=== PATIENT | male | born 1965 | race Caucasian/White ===

== ENCOUNTER → 2017-01-13 13:00 | Outpatient (CLI) | payer MEDICARE, BC ==
[2013-07-30 15:23] VITALS: BMI 35.7
[~2017-01-13 13:00] MED LIST: ASPIRIN EC81 MG PO; CALCIUM 600+D T1 TA1 PO; CARAFATE1 G PO; CENTRUM COMPLE1 EACH PO; DEXILANT60 MG PO; DIOVAN320 MG PO; FISH OIL 1,0001 CA1 PO; NORVASC5 MG PO; PRAVACHOL20 MG PO; PROLASTIN-C; SPIRIVA18 MCG; SYMBICORT 16010.2 GM INH; VENTOLIN HFA18 GM INH; VITAMIN A10000 UNIT; VITAMIN E400 UNI2 PO
== END | disposition home or self-care (01) ==
LOC: D.US 13:00
DX: E03.9 Hypothyroidism, unspecified (principal)

== ENCOUNTER 2018-08-27 07:50 | Outpatient (CLI) | payer MEDICARE, BC ==
--- NOTE | ~2018-08-27 | HEMODYNAMI ---
PATIENT:SERGIO BRADY MEDICAL RECORD: [id number] : 63 LOCATION:D.CAT ADMISSION DATE: 08/27/18 Generatedon:08/27/201811:31 Patient name: SERGIO BRADY Patient #: [id number] SSN: DO B: 1965 Date of study: 08/27/2018 Page: Of Hemodynamic Procedure Report Patient Data Patient Demographics Procedure consent was obtained First Name: SERGIO Gender: Male Last Name: CAITLYN : 1965 Middle Initial: D Age: 53 year(s) Patient #: [id number] Race: Unknown Additional ID: [id number] Contact details Address: [place] [address] [place] [place] [facility] Zip code: [address] Past Medical History Allergies Allergen Reaction Date Comments Reported Other allergy 08/27/2018 PCN, MORPHINE Admission Admission Data Admission Date: 08/27/2018 Admission Time: 7:50 Admit Source: Other Lab Results Lab Result Date: 08/27/2018 Lab Result Time: 9:05 Biochemistry Name Units Result Min Max BUN mg/dl 16 --(---*)-- 7 18 Creatinine mg/dl 1 --(--*-)-- 0.6 1.3 CBC Name Units Result Min Max Hematocrit % 43.1 --(*---)-- 42 54 Hemoglobin g/dl 14.5 --(*---)-- 13.5 17.5 Procedure Procedure Types Cath Procedure Diagnostic Procedure LHC LHC w/Coronaries FFR/IVUS FFR Initial Sedation Charges Moderate Sedation up to 15 minutes Procedure Description Procedure Date Procedure Date: 08/27/2018 Procedure Start Time: 10:58 Procedure End Time: 11:20 Procedure Staff Name Function Smith Coreas MD Performing Physician Masoud Ruiz RT Monitor Doug Parkinson RN Nurse Jewels Tillman RT Scrub Jonnathan Simons RT Tablet Coater Procedure Data Cath Procedure Fluoroscopy Diagnostic fluoroscopy Total fluoroscopy Time: 4.7 time: 4.7 min min Diagnostic fluoroscopy Total fluoroscopy dose: dose: 1217 mGy 1217 mGy Contrast Material Contrast Material Type Amount (ml) Isovue 300 98 Entry Location Entry Primary Successful Side Size Upsize Upsize Entry Closure Mccarthy ccessful Closure Location (Fr) 1 (Fr) 2 (Fr) Remarks Device Remarks Radial Right 6 Fr Mechanical artery Short Compression Estimated blood loss: 10 ml Diagnostic catheters Device Type Used For End Catheter Placement DIAGNOSTIC Theo 110cm Procedure 5Fr catheter ([id number]) Procedure Complications No complications Procedure Medications Medication Administration Route Dosage 0.9% NaCl I.V. 100 ml/hr Oxygen etCO2 Nasal cannula 2 l/min Heparin Flush Bag added to field 2 bags (1000units/500ml NS) Lidocaine 2% added to field 20 Radial Cocktail added to field 1 syringe (Verapamil 2mg/Nitro 400mcg/Heparin 1500units) Versed I.V. 2 mg Fentanyl I.V. 100 mcg Radial Cocktail I.A. 1 syringe (Verapamil 2mg/Nitro 400mcg/Heparin 1500units) Versed I.V. 1 mg Heparin Bolus I.V. 5000 units Hemodynamics Rest HGB: 14.5 (g/dl) Heart Rate: 59 (bpm) Pressure Samples Time Site Value (mmHg) Purpose Heart Use Rate(bpm) 11:01 LV 125/1,15 Snapshot 67 11:01 AO 109/61(80) Pullback 73 11:01 LV 123/0,22 Pullback 73 Gradients Valve Time Site 1 Site 2 Mean SEP/DFP Peak To Heart Use (mmHg) (sec/min) Peak Rate (mmHg) (bpm) Aortic 11:01 LV AO 10 20 14 73 123/0,22 109/61(80) Calculations Valve P-P Mean Valve Index Valve Source Name Gradient Area Flow (cm2) Aortic 14 10 14 10 Snapshots Pre Cath Intra NCS Post Cath Vital Signs Time Heart Resp SPO2 etCO2 NIBP (mmHg) Rhythm Pain Sedation Rate (ipm) (%) (mmHg) Status Level (bpm) 10:45:37 60 17 98 36 149/93(105) NSR 0 (11) 10(A) , No pain 10:49:51 57 13 93 0 128/83(100) NSR 0 (11) 10(A) , No pain 10:54:05 57 11 93 0 126/79(93) NSR 0 (11) 10(A) , No pain 10:58:16 59 13 93 38.2 135/79(101) NSR 0 (11) 10(A) , No pain 11:02:24 66 12 91 0 112/75(86) NSR 0 (11) 10(A) , No pain 11:06:34 68 13 92 0 113/72(93) NSR 0 (11) 9(A) , No pain 11:10:44 64 12 91 0 120/71(94) NSR 0 (11) 9(A) , No pain 11:14:56 65 14 92 9 126/76(90) NSR 0 (11) 9(A) , No pain 11:19:06 61 16 96 28.4 129/86(92) NSR 0 (11) 10(A) , No pain Medications Time Medication Route Dose Verified Delivered Reason Not es Effectiveness by by 10:43:31 0.9% NaCl I.V. 100 Doug Doug Per physician ml/hr Iggy Parkinson RN RN 10:43:39 Oxygen etCO2 2 l/min Doug Doug for low 02 sats Nasal Lorigan Iggy cannula RN RN 10:43:51 Heparin Flush added 2 bags Doug Doug used for Bag to Lorigan Iggy procedure (1000units/500ml field RN RN NS) 10:44:02 Lidocaine 2% added 20ml Doug Doug for local to vial Lorigan Lorigan anesthetic RN RN 10:48:11 Radial Cocktail added 1 Doug Doug used for (Verapamil to syringe Lorigan Lorigan procedure 2mg/Nitro field RN RN 400mcg/Heparin 1500units) 10:56:11 Versed I.V. 2 mg Doug Doug for sedation Iggy Parkinson RN RN 10:56:17 Fentanyl I.V. 100 mcg Doug Doug for sedation Iggy Parkinson RN RN 10:59:44 Radial Cocktail I.A. 1 Doug Smith for (Verapamil syringe Iggy Coreas MD vasodilation 2mg/Nitro RN 400mcg/Heparin 1500units) 11:02:00 Versed I.V. 1 mg Doug Doug for sedation Iggy Parkinson RN RN 11:11:38 Heparin Bolus I.V. 5000 Doug Doug for units Lorigan Lorderek anticoagulation RN tire builder Log Time Note 10:02:10 Admit Source: Other 10:02:12 Diagnostic Cath status Elective 10:02:13 Time tracking: Regular hours (M-F 7:00 - 5:00) 10:02:19 Plan of Care:Hemodynamics will remain stable., Cardiac rhythm will remain stable., Comfort level will be maintained., Respiratory function will remain adequate., Patient/ family verbilizes understanding of procedure., Procedure tolerated without complication., Recovers from procedure without complications.. 10:02:27 H&P Date Dictated: 08/24/2018 Within 30 days and on chart., H&P Addendum completed by physician on day of procedure. (MUST COMPLETE FOR ALL OUTPATIENTS). 10:15:48 Jonnathan Simons RT(R) sent for patient. Start room use. 10:36:44 Patient received from Pre/Post Procedure Room to CCL 2 Alert and oriented. Tansferred to table in Supine position. 10:36:45 Warm blankets applied, and phillip hugger turned on for patient comfort. 10:36:45 Correct patient and procedure confirmed by team. 10:36:46 Signed procedure consent form obtained from patient. 10:36:47 ECG and BP/O2 sat monitors applied to patient. 10:36:48 Pre-procedure instructions explained to patient. 10:36:48 Pre-op teaching completed and patient verbalized understanding. 10:36:49 Family in waiting room. 10:36:51 Patient NPO since Midnight. 10:43:31 0.9% NaCl 100 ml/hr I.V. was administered by Doug Parkinson RN; Per physician; 10:43:39 Oxygen 2 l/min etCO2 Nasal cannula was administered by Doug Parkinson RN; for low 02 sats; 10:43:51 Heparin Flush Bag (1000units/500ml NS) 2 bags added to field was administered by Doug Parkinson RN; used for procedure; 10:44:02 Lidocaine 2% 20ml vial added to field was administered by Doug Parkinson RN; for local anesthetic; 10:44:31 Vital chart was started 10:47:52 Patient allergic to Other allergyPCN, MORPHINE 10:47:55 Baseline sample Acquired. 10:47:59 Rhythm: sinus rhythm 10:48:00 Full Disclosure recording started 10:48:04 Is the patient allergic to Iodine/contrast media? No. 10:48:05 Is patient on blood thinner?No 10:48:06 Patient diabetic? No. 10:48:09 Previous problem with sedation/anesthesia? No ? 10:48:11 Radial Cocktail (Verapamil 2mg/Nitro 400mcg/Heparin 1500units) 1 syringe added to field was administered by Doug Parkinson RN; used for procedure; 10:48:22 Snore? Yes 10:48:23 Sleep apnea? Yes 10:48:27 Deviated septum? No 10:48:41 Opens mouth fully? Yes 10:48:46 Sticks out tongue? Yes 10:48:53 Airway obstruction? No ? 10:48:55 Dentures? No ? 10:48:58 Pre procedure: right dorsailis pedis pulse Doppler 10:49:00 Modified Denny's test Ulnar < 7 seconds 10:49:02 Patient pain scale 0/10 ?. 10:49:06 IV patent on arrival in left hand with 0.9% NaCl at [facility]. 10:49:30 Lab Result : Creatinine 1 mg/dl 10:49:30 Lab Result : BUN 16 mg/dl 10:49:30 Lab Result : Hemoglobin 14.5 g/dl 10:49:30 Lab Result : Hematocrit 43.1 % 10:49:32 Lab results completed and on chart. 10:49:41 Right Radial & Right Groin area was prepped with chlora-prep and draped in sterile fashion 10:49:42 Alarms reviewed by R. N. 10:49:43 Sharps counted by scrub and verified by R.N. 10:49:46 Use device set Radial Dx or PCI 10:49:47 ACIST Syringe (99910) opened to sterile field. 10:49:47 Medline Cath Pack ([id number]) opened to sterile field. 10:49:48 Bag Decanter () opened to sterile field. 10:49:48 ACIST Hand Control (58610) opened to sterile field. 10:49:49 ACIST Manifold (34029) opened to sterile field. 10:49:49 Tegaderm 4 x 4 (1626W) opened to sterile field. 10:49:50 MBrace Wrist Support ([id number]) opened to sterile field. 10:49:50 DIAGNOSTIC WIRE .035 260cm J wire (696415) opened to sterile field. 10:49:51 SHEATH 6FR Slender (33-5881) opened to sterile field. 10:50:49 NEEDLE Cook 21G 4cm Radial (W00091) opened to sterile field. 10:53:46 Zero performed for pressure channel P1 10:53:52 Zero performed for pressure channel P1 10:55:10 Physician arrived 10:55:10 --------ALL STOP TIME OUT------ 10:55:11 Final Timeout: patient, procedure, and site verified with staff and physician. All members of the team are in agreement. 10:55:12 Right Radial & Right Groin site verified by team. 10:55:16 Maximum allowable Isovue 300 dose 300ml. Physician notified. (300ml for normal creatinines. For patients with creatinine of 1.7 or higher multiply weight(kg) x 5 divided by creatinine.) 10:55:19 Fire Safety Assessment: A--An alcohol-based skin anteseptic being used preoperatively., C--Open oxygen or nitrous oxide is being used., D--An ESU, laser, or fiber-optic light is being used. 10:55:21 Physical assessment completed. ASA score P 2 - A patient with mild systemic disease as per Smith Coreas MD. 10:55:24 Sedation plan: IV Moderate Sedation Medication:Versed, Fentanyl 10:56:11 Versed 2 mg I.V. was administered by Doug Parkinson RN; for sedation; 10:56:17 Fentanyl 100 mcg I.V. was administered by Doug Parkinson RN; for sedation; 10:58:00 Procedure started. 10:58:03 Local anesthetic to right radial artery with Lidocaine 2% by Smith Coreas MD.INITIAL ACCESS ONLY 10:59:37 A 6 Fr Short sheath was inserted into the Right Radial artery 10:59:44 Radial Cocktail (Verapamil 2mg/Nitro 400mcg/Heparin 1500units) 1 syringe I.A. was administered by Smith Coreas MD; for vasodilation; 11:00:06 A DIAGNOSTIC Theo 110cm 5Fr catheter ([id number]) was advanced over the wire and used for Procedure. 11:01:30 LV gram done using CARPENTER 11:01:32 Injector settings: Ml/sec: 5, Volume: 15, 11:01:33 LV hemodynamics recorded. 11:01:42 EF : 50 % 11:02:00 Versed 1 mg I.V. was administered by Doug Parkinson RN; for sedation; 11:02:20 LCA angiography performed. 11:08:35 RCA angiography performed. 11:08:55 Catheter exchanged over wire. 11:09:03 GUIDE 6FR XBLAD 3.5 catheter ([id number]) opened to sterile field. 11:10:16 INFLATOR Merit BasixCompak (JU3882) opened to sterile field. 11:10:21 [place] Verrata Plus pressure wire (25309Z) opened to sterile field. 11:10:22 TUBING High Pressure Extension Tubing (Joss) (UP3248R) opened to sterile field. 11:10:42 6 Fr XBLAD 3.5 guide catheter was inserted over the wire 11:11:38 Heparin Bolus 5000 units I.V. was administered by Doug Parkinson RN; for anticoagulation; 11:12:22 FFR/IFR wire advanced. 11:14:35 Wire advanced across lesion. 11:16:35 MID LAD lesion measured at 0.92 with IFR 11:17:08 Wire removed. 11:17:09 Guide catheter removed. 11:17:20 TR BAND Large ([id number]) opened to sterile field. 11:17:28 Sheath removed intact; hemostasis achieved with Mechanical Compression to the Right Radial artery. 11:17:30 Procedure ended.(Physican Out) 11:18:44 Fluoroscopy time 04.70 minutes. 11:18:48 Fluoroscopy dose: 1217 mGy 11:18:48 Flurop Dose total: 1217 11:18:52 Contrast amount:Isovue 300 98ml. 11:18:53 Sharps counted by scrub and verified by R.N. 11:19:02 TR band inflated with 12cc of air. 11:19:03 Insertion/operative site no bleeding no hematoma. 11:19:06 Post Procedure Pulses reassessed and unchanged 11:19:10 Post-procedure physical assessment completed. ASA score P 2 - A patient with mild systemic disease as per Smith Coreas MD. 11:19:16 Post procedure rhythm: unchanged. 11:19:18 Estimated blood loss: 10 ml 11:19:19 Post procedure instruction explained to patient.Patient verbalizes understanding. 11:19:20 Patient needs reinforcement of post procedure teaching. 11:19:33 Procedure type changed to Cath procedure, Diagnostic procedure, LHC, LHC w/Coronaries, FFR/IVUS, FFR Initial, Sedation Charges, Moderate Sedation up to 15 minutes 11:20:15 Procedure and supply charges have been captured, reviewed, submitted and are correct. 11:20:17 Procedure Complication : No complications 11:20:19 Vital chart was stopped 11:20:19 See physician's report for complete and final results. 11:20:20 Report given to Pre/Post Procedure Room. 11:20:22 Patient transfered to Pre/Post Procedure Room with Stretcher. 11:20:24 Procedure ended. 11:20:24 Full Disclosure recording stopped 11:20:28 End room use (Document Last) Device Usage Item Name Manufacture Quantity Catalog Hospital Part Current Mini mal Lot# / Number Charge Number Stock Stock Serial# Code ACIST Acist 1 79888 647840 124095 382506 20 Syringe Medical (93268) Systems Inc Medline Medline 1 [id number] 035092 98941 030736 5 Cath Pack ([id number]) Bag Microtek 1 388321 25369 177765 5 Decanter Medical Inc. () ACIST Hand Acist 1 83499 762619 839909 810620 5 Control Medical (35196) Systems Inc ACIST Acist 1 44294 373631 874192 254734 5 Manifold Medical (53569) Systems Inc Tegaderm 4 3M 1 1626W 224763 917249 784500 5 x 4 (1626W) MBrace Advanced 1 140-0250-00 611316 90156 638074 5 Wrist Vascular Support Dynamics ([id number]) DIAGNOSTIC [place] 1 940322 906116 745677 554618 30 WIRE .035 260cm J wire (294936) SHEATH 6FR Terumo 1 [id number] 452603 062465 083831 5 Slender (80-1060) NEEDLE Cook Cook Medical 1 L02231 745339 011042 173535 5 21G 4cm Radial (B96315) DIAGNOSTIC Terumo 1 40-8448 835347 232968 495144 5 Theo 110cm 5Fr catheter (091386) GUIDE 6FR Cardinal 1 [id number] 220098 933851 477223 10 XBLAD 3.5 Health catheter (29122983) INFLATOR Merit 1 UT6796 722730 315507 689709 15 Merit Medical BasixCompak (TJ0150) [place] 1 80858A 723624 932610786 674045 5 Verrata Plus pressure wire (30825Q) TUBING High Merit 1 [id number] 465000 60432 608192 10 Pressure Medical Extension Tubing (Coreas) (QL6502Y) TR BAND Terumo 1 [id number] 201111 269568 709993 40 Large ([id number]) Signature Audit [place] Stage Time Signature Unsigned Intra-Procedure 08/27/2018 Masoud Ruiz 11:31:08 AM RT(R) Signatures Monitor : Masoud Ruiz RT Signature : Date : Time : [id number] [place] [address]
[2018-08-27] MEDS ORDERED: BREO ELLIPTA 21 EACH (08:34)
[2018-08-27] MEDS ORDERED: ZOLOFT100 MG PO (08:34)
[2018-08-27] MEDS ORDERED: COZAAR100 MG PO (08:35)
[2018-08-27] MEDS ORDERED: MIRAPEX0.5 MG PO (08:35)
[2018-08-27] MEDS ORDERED: NITROQUICK0.4 MG SL (08:36)
[2018-08-27] MEDS ORDERED: SINGULAIR10 MG PO (08:36)
[2018-08-27] MEDS ORDERED: FUROSEMIDE20 MG PO (08:37)
[2018-08-27] MEDS ORDERED: NORVASC10 MG PO (08:37)
[2018-08-27] MEDS ORDERED: NEXIUM40 MG PO (08:37)
[2018-08-27] MEDS ORDERED: ATIVAN1 MG PO (08:38)
[2018-08-27] MEDS ORDERED: ZANTAC300 MG PO (08:38)
[2018-08-27] MEDS ORDERED: HYDROCHLOROTH12.5 M1 PO (08:38)
[2018-08-27] MEDS ORDERED: TOPROL XL25 MG PO (08:39)
[2018-08-27] MEDS ORDERED: PRAVASTATIN SOD10 MG PO (08:39)
[2018-08-27 08:52] VITALS: BP 124/82; BMI 36.2
[2018-08-27 09:19] LABS: BASOPHILS 0.4 % (0-2); HEMATOCRIT 43.1 % (42.0-54.0); HEMOGLOBIN 14.5 g/dL (13.5-17.5); LYMPHOCYTES 33.5 % (15-50); MCH 31.1 pg (26.0-34.0); MCHC 33.6 g/dL (31.0-37.0); MCV 92.5 fL (80.0-100.0); MEAN PLATELET VOLUME 10.4 fL (7.4-10.4); MONOCYTES 7.8 % (2-11); NEUTROPHILS 52.3 % (40-80); RBC 4.66 10x6/uL (4.20-6.10); RDW 13.3 % (11.5-14.5); WBC 5.5 10x3/uL (4.8-10.8)
[2018-08-27 09:26] LABS: CALC OSMOLALITY 280 mosm/kg (275-300); CALCIUM 8.6 mg/dL (8.5-10.1); CARBON DIOXIDE 27.6 mmol/L (21.0-32.0); CHLORIDE - SERUM 105 mmol/L (98-107); GLUCOSE 108 mg/dL (74-106); PLATELET COUNT 179 10x3/uL (130-400); SODIUM 140 mmol/L (136-145); UREA NITROGEN 16 mg/dL (7-18); eGFR NON AFRICAN AMERICAN 83 mL/min (90-120)
[2018-08-27 10:24] LABS: APTT 26.8 SECONDS (22.8-39.4); INR 1.06 (0.85-1.17); PROTIME 13.3 SECONDS (11.6-15.0)
--- NOTE | 2018-08-27 11:30 | NUR ---
PT RECEIVED VIA STRETCHER FROM TILE MECHANIC HELPER FOR RECOVERY. PT AWAKE AND ALERT, DENIES PAIN OR DISCOMFORT. TR BAND AND IMMOBILIZER TO R WRIST, DRESSING CDI NO BLEEDING OR SWELLING NOTED. CAP REFILL BRISK, ARM AND HAND PINK AND WARM. HR NSR RATE 60, BP 124/88, 02 SAT 95 ON 2L O2 VIA NC. DR JAY IN AND SPOKE W FAMILY REGARDING PLAN OF CARE AND PROCEDURE RESULTS. COFFEE GIVEN PER REQUEST, CALL LIGHT IN REACH
--- NOTE | 2018-08-27 11:45 | NUR ---
PT RESTING COMFORTABLY. TR BAND IN PLACE, DRESSING REMAINS CDI NO BLEEDING OR SWELLING NOTED AROUND SITE. CAP REFILL BRISK. PT DENIES PAIN OR NEEDS AT PRESENT. DAUGHTER REMAINS AT BEDSIDE, CALL LIGHT IN REACH
--- NOTE | 2018-08-27 12:17 | NUR ---
PT DOING WELL, DENIES PAIN OR DISCOMFORT. TOLERATED LUNCH W/O NAUSEA. TR BAND IN PLACE, DRESSING CDI NO BLEEDING OR SWELLING NOTED. VSS. CALL LIGHT IN REACH
--- NOTE | 2018-08-27 12:30 | NUR ---
PT AWAKE, WATCHING TV. DENIES PAIN OR NEEDS. TR BAND TO R WRIST REMAINS IN PLACE, DRESSING CDI NO BLEEDING OR HEMATOMA NOTED. PT VOIDED 300CC CLEAR YELLOW URINE IN URINAL. CALL LIGHT IN REACH
--- NOTE | 2018-08-27 13:10 | NUR ---
PT RESTING W EYES CLOSED, R WRIST DRESSING CDI NO BLEEDING OR SWELLING NOTED. VSS. DAUGHTER REMAINS AT BEDSIDE, CALL LIGHT IN REACH
--- NOTE | 2018-08-27 13:33 | NUR ---
PT RESTING W EYES CLOSED, R WRIST DRESSING REMAINS CDI NO BLEEDING OR HEMATOMA NOTED. ARM AND HAND WARM AND PINK, CAP REFILL BRISK. CALL LIGHT IN REACH, DENIES NEEDS
--- NOTE | 2018-08-27 14:01 | NUR ---
2CC AIR REMOVED FROM TR BAND, SMALL AMOUNT OF BLEEDING NOTED, 1CC AIR REPLACED. BLEEDING STOPPED. NO ADDITIONAL BLEEDING OR SWELLING NOTED. PT DENIES PAIN OR NEEDS AT THIS TIME. VSS. CALL LIGHT IN REACH
--- NOTE | 2018-08-27 14:17 | NUR ---
3 CC AIR REMOVED FROM TR BAND, NO BLEEDING NOTED. PT DENIES NEEDS
--- NOTE | 2018-08-27 14:29 | NUR ---
IV REMOVED W CATH INTACT PER Eyad KEVIN RN. MONITORS REMOVED AND PT UP TO DRESS FOR DISCHARGE. PT REQUESTING TO WALK TO BR.
--- NOTE | 2018-08-27 14:44 | NUR ---
REMAINING AIR REMOVED FROM TR BAND, NO BLEEDING OR HEMATOMA NOTED. 2X2 AND TEGADERM DRESSING APPLIED. DISCHARGE INSTRUCTIONS REVIEWED W PT AND DAUGHTER, BOTH VERBALIZED UNDERSTANDING. PT DISCHARGED TO PRIVATE VEHICLE VIA WC WITH ALL BELONGINGS.
== END 2018-08-27 14:45 | disposition home or self-care (01) ==
LOC: D.CATH 07:50
PROVIDERS: ATTEND Internal Medicine Cardiovascular Disease
DX: I25.110 Atherosclerotic heart disease of native coronary artery with unstable angina pectoris (principal); T82.855A Stenosis of coronary artery stent, initial encounter; Z01.812 Encounter for preprocedural laboratory examination

== ENCOUNTER → 2018-10-08 08:32 | Outpatient (CLI) | payer MEDICARE, BC ==
[~2018-10-08 08:32] MED LIST changes: +ATIVAN1 MG PO; +BREO ELLIPTA 21 EACH; +COZAAR100 MG PO; +FUROSEMIDE20 MG PO; +HYDROCHLOROTH12.5 M1 PO; +MIRAPEX0.5 MG PO; +NEXIUM40 MG PO; +NITROQUICK0.4 MG SL; +NORVASC10 MG PO; +PRAVASTATIN SOD10 MG PO; +SINGULAIR10 MG PO; +TOPROL XL25 MG PO; +ZANTAC300 MG PO; +ZOLOFT100 MG PO
== END | disposition home or self-care (01) ==
LOC: D.HCCARDIO 08:32
PROVIDERS: ATTEND Internal Medicine Cardiovascular Disease
DX: I25.10 Atherosclerotic heart disease of native coronary artery without angina pectoris (principal)

== ENCOUNTER → 2020-07-14 13:26 | Outpatient (CLI) | payer MEDICARE, BC | END | disposition home or self-care (01) | LOC: D.HCCECHO 13:26 | PROVIDERS: ATTEND Internal Medicine Cardiovascular Disease | DX: I25.10 Atherosclerotic heart disease of native coronary artery without angina pectoris (principal) ==

== ENCOUNTER → 2020-08-14 08:39 | Outpatient (CLI) | payer MEDICARE, BC | END | disposition home or self-care (01) | LOC: D.HCCARDIO 08:39 | PROVIDERS: ATTEND Internal Medicine Cardiovascular Disease | DX: R06.00 Dyspnea, unspecified (principal) ==

== ENCOUNTER 2020-08-20 07:01 | Day surgery (SDC) | payer MEDICARE, BC ==
[~2020-08-20] VITALS: Ht 185.4 cm; Wt 124.8 kg
--- NOTE | ~2020-08-20 | HEMODYNAMI ---
PATIENT:SERGIO BRADY MEDICAL RECORD: [id number] : 63 LOCATION:D.CAT ADMISSION DATE: 08/20/20 Generatedon::57 Patient name: SERGIO BRADY Patient #: [id number] SSN: [id number] : 1965 Date of study: 08/20/2020 Page: Of Hemodynamic Procedure Report Patient Data Patient Demographics Procedure consent was obtained First Name: SERGIO Gender: Male Last Name: CAITLYN : 1965 Middle Initial: D Age: 55 year(s) Patient #: [id number] Race: SSN: [id number] Additional ID: [id number] Contact details Address: [place] [address] State: [place] City: [place] Zip code: [address] Past Medical History Allergies Allergen Reaction Date Comments Reported Other allergy 08/27/2018 PCN, MORPHINE Other allergy 08/20/2020 PCN, MORPHINE Admission Admission Data Admission Date: 08/20/2020 Admission Time: 7:01 Arrival Date: 08/20/2020 Arrival Time: 8:30 Admit Source: Other Insurance Payor: Medicare [facility] #: [id number] Height (in.): 73 BSA: 2.46 (m2) Height (cm.): 185.42 BMI: 36.3 (kg/m2) Weight (lbs.): 275.16 Weight (kg.): 124.81 Lab Results Lab Result Date: 08/20/2020 Lab Result Time: 0:00 Biochemistry Name Units Result Min Max BUN mg/dl 15 --(--*-)-- 7 18 Creatinine mg/dl 1.1 --(--*-)-- 0.6 1.3 eGFR ml/min 73.85340 *-(----)-- 90 120 NONAFRICAN CBC Name Units Result Min Max Hematocrit % 45 --(*---)-- 42 54 Hemoglobin g/dl 15.3 --(-*--)-- 13.5 17.5 Procedure Procedure Types Cath Procedure Diagnostic Procedure [facility] w/Coronaries FFR/IVUS FFR Initial Sedation Charges Moderate Sedation 10-24 minutes PCI Procedure Coronary Stent Coronary Stent Initial Hemochron ACT Test Procedure Description Procedure Date Procedure Date: 08/20/2020 Procedure Start Time: 9:02 Procedure End Time: 9:53 Procedure Staff Name Function Smith Coreas MD Performing Physician Lauren Pena RT Monitor Nilsa Banegas RT Scrub Malgorzata Goss RN Nurse Procedure Data Cath Procedure Fluoroscopy Diagnostic fluoroscopy Total fluoroscopy Time: time: 11.3 min 11.3 min Diagnostic fluoroscopy Total fluoroscopy dose: dose: 2084 mGy 2084 mGy Contrast Material Contrast Material Type Amount (ml) Isovue 370 165 Entry Location Entry Primary Successful Side Size Upsize Upsize Entry Closure Mccarthy ccessful Closure Location (Fr) 1 (Fr) 2 (Fr) Remarks Device Remarks Radial Right 6 Fr Mechanical artery Short Compression Estimated blood loss: 10 ml Diagnostic catheters Device Type Used For End Catheter Placement DIAGNOSTIC [place] 110cm 5 Procedure Fr catheter ([id number]) Procedure Complications No complications Procedure Medications Medication Administration Route Dosage 0.9% NaCl I.V. 100 ml/hr Lidocaine 2% added to field 20 Heparin Flush Bag added to field 2 bags (1000units/500ml NS) Oxygen NC 3 l/min Radial Cocktail added to field 1 syringe (Verapamil 2mg/Nitro 400mcg/Heparin 1500units) Versed I.V. 1 mg Fentanyl 50 mcg Versed I.V. 1 mg Fentanyl I.V. 50 mcg Versed I.V. 1 mg Fentanyl I.V. 50 mcg Versed I.V. 1 mg Fentanyl I.V. 50 mcg Heparin Bolus I.V. 5000 units Versed I.V. 1 mg Heparin Bolus I.V. 5000 units Nitroglycerin IC/IA I.A. 50 mcg Versed I.V. 1 mg Hemodynamics Rest BSA: 2.46 (m2) HGB: 15.3 (g/dl) O2 Consumption: Estimated: 286.42 (ml/min) O2 Co nsumption indexed: Estimated:116.43 (ml/min/m) Heart Rate: 65 (bpm) Pressure Samples Time Site Value (mmHg) Purpose Heart Use Rate(bpm) 9:07 LV 125/2,17 Snapshot 70 Gradients Valve Time Site Site Mean SEP/DFP Peak To Heart Use 1 2 (mmHg) (sec/min) Peak Rate (mmHg) (bpm) Aortic 9:07 LV AO 70 Snapshots Pre Cath Intra NCS Post Cath Vital Signs Time Heart Resp SPO2 etCO2 NIBP (mmHg) Rhythm Pain Sedation Rate (ipm) (%) (mmHg) Status Level (bpm) 8:32:16 61 15 99 0 147/88(113) NSR 0 (11) 10(A) , No pain 8:36:36 62 18 100 0 136/85(105) NSR 0 (11) 10(A) , No pain 8:40:50 64 16 99 0 129/82(100) NSR 0 (11) 10(A) , No pain 8:45:06 61 11 96 0 115/70(83) NSR 0 (11) 10(A) , No pain 8:49:21 57 19 95 0 103/65(84) NSR 0 (11) 10(A) , No pain 8:53:26 61 15 96 0 111/72(88) NSR 0 (11) 9(A) , No pain 8:57:36 59 10 95 0 107/69(94) NSR 0 (11) 9(A) , No pain 9:01:44 59 15 95 0 108/72(81) NSR 0 (11) 9(A) , No pain 9:05:50 61 12 96 0 114/77(92) NSR 0 (11) 9(A) , No pain 9:09:58 65 11 93 111/63(82) NSR 0 (11) 9(A) , No pain 9:14:09 66 12 94 111/64(84) NSR 0 (11) 9(A) , No pain 9:18:17 67 13 95 0 114/73(83) NSR 0 (11) 9(A) , No pain 9:22:25 68 14 96 0 117/76(91) NSR 0 (11) 9(A) , No pain 9:26:37 67 13 96 0 109/74(84) NSR 0 (11) 9(A) , No pain 9:30:49 63 13 94 0 108/66(81) NSR 0 (11) 9(A) , No pain 9:35:01 63 13 95 0 108/64(84) NSR 0 (11) 9(A) , No pain 9:39:11 65 14 95 0 107/68(81) NSR 0 (11) 9(A) , No pain 9:43:21 64 14 95 0 113/67(81) NSR 0 (11) 9(A) , No pain 9:47:30 66 15 95 0 100/68(82) NSR 0 (11) 9(A) , No pain 9:51:34 67 18 95 0 115/74(92) NSR 0 (11) 10(A) , No pain 9:56:25 64 15 97 0 107/74(91) NSR 0 (11) 10(A) , No pain Medications Time Medication Route Dose Verified Delivered Reason Notes Effectiveness by by 8:31:30 0.9% NaCl I.V. 100 Smith Buffie used for ml/hr Joss Ko RN procedure 8:31:41 Lidocaine 2% added 20ml Smith Buffie for local to vial Joss Ko RN anesthetic field 8:31:59 Heparin Flush added 2 bags Smith Buffie used for Bag to Joss Ko RN procedure (1000units/500ml field NS) 8:32:07 Oxygen NC 3 l/min Smith Buffie for low 02 sats Joss Ko RN 8:33:27 Radial Cocktail added 1 Smith Buffie for (Verapamil to syringe Joss Ko RN vasodilation 2mg/Nitro field 400mcg/Heparin 1500units) 8:52:08 Versed I.V. 1 mg Smith Malgorzata for sedation Joss Goss RN 8:52:11 Fentanyl 50 mcg Smith Malgorzata for sedation Joss Goss RN 8:56:23 Versed I.V. 1 mg Smith Malgorzata for sedation Joss Goss RN 8:56:36 Fentanyl I.V. 50 mcg Smith Malgorzata for sedation Joss Goss RN 9:00:03 Fentanyl I.V. 50 mcg Smith Malgorzata for sedation Joss Goss RN 9:00:49 Versed I.V. 1 mg Smith Malgorzata for sedation Joss Goss RN 9:04:28 Versed I.V. 1 mg Smith Malgorzata for sedation Joss Goss RN 9:04:35 Fentanyl I.V. 50 mcg Smith Malgorazta for sedation Joss Goss RN 9:13:30 Heparin Bolus I.V. 5000 Smith Malgorzata for verif ied units Joss Goss anticoagulation with dr TRINA coreas 9:25:14 Versed I.V. 1 mg Smith Malgorzata for sedation Joss Goss RN 9:30:02 Versed I.V. 1 mg Smith Smith for sedation Joss Coreas MD 9:33:20 Heparin Bolus I.V. 5000 Smith Malgorzata for verif ied units Joss Goss anticoagulation with dr TRINA coreas 9:45:40 Nitroglycerin I.A. 50 mcg Smith Smith for IC/IA Joss Coreas MD vasodilation Procedure Log Time Note 7:42:05 Diagnostic Cath Status : Elective 7:43:29 Informed consent obtained and on chart 7:45:02 Arrival Date: 08/20/2020 8:30:00 AM 7:45:26 Admit Source: Other 7:45:31 Insurance Payor : Medicare 8:16:50 Patient Height : 73 inches 8:16:58 Patient Weight : 275.16 lbs 8:17:27 ACC Patient presents with Stable Angina CCS Anginal Class 2--Slight limitation of ordinary activity. 8:17:30 Procedure Status Elective Heart Cath (OP). 8:17:33 Nilsa Banegas RT(R) sent for patient. Start room use. 8:18:11 Time tracking: Regular hours (M-F 7:00 - 5:00) 8:18:16 Plan of Care:Hemodynamics will remain stable., Cardiac rhythm will remain stable., Comfort level will be maintained., Respiratory function will remain adequate., Patient/ family verbilizes understanding of procedure., Procedure tolerated without complication., Recovers from procedure without complications.. 8:18:24 H&P Date Dictated: 08/05/2020 Within 30 days and on chart.. 8:18:27 Family in waiting room. 8:18:28 Patient NPO since Midnight. 8:18:55 Patient allergic to Other allergyPCN, MORPHINE 8:19:11 Alarms reviewed by RIsabel N. 8:19:11 Sharps counted by scrub and verified by R.N. 8:19:15 Lab results pending. 8:19:31 Lab Result : Hemoglobin 15.3 g/dl 8:19:31 Lab Result : Hematocrit 45 % 8:20:00 Stress Test: yes; abnormal INFERIOR, APICAL 8:20:51 Use device set Radial Dx or PCI 8:31:13 Vital chart was started 8:31:30 0.9% NaCl 100 ml/hr I.V. was administered by Annette Ko RN; used for procedure; Verbal order read back and verified. 8:31:41 Lidocaine 2% 20ml vial added to field was administered by Annette Ko RN; for local anesthetic; Verbal order read back and verified. 8:31:59 Heparin Flush Bag (1000units/500ml NS) 2 bags added to field was administered by Annette Ko RN; used for procedure; Verbal order read back and verified. 8:32:07 Oxygen 3 l/min NC was administered by Annette Ko RN; for low 02 sats; Verbal order read back and verified. 8:33:27 Radial Cocktail (Verapamil 2mg/Nitro 400mcg/Heparin 1500units) 1 syringe added to field was administered by Annette Ko RN; for vasodilation; Verbal order read back and verified. 8:37:45 Patient received from Pre/Post Procedure Room to CCL 2 Alert and oriented. Tansferred to table in Supine position. 8:37:46 Warm blankets applied, and phillip hugger turned on for patient comfort. 8:37:47 Correct patient and procedure confirmed by team. 8:37:47 ECG and BP/O2 sat monitors applied to patient. 8:37:48 Baseline sample Acquired. 8:37:49 Full Disclosure recording started 8:37:53 Rhythm: sinus rhythm 8:37:57 Is the patient allergic to Iodine/contrast media? No. 8:37:59 Was the patient premedicated? Yes 8:38:00 Is patient on blood thinner?No 8:38:04 ACC The patient was administered the following blood thiners within the last 24 hours: ACCAspirin 8:38:06 Patient diabetic? No. 8:38:08 If diabetic: On Metformin? N/A 8:38:09 ----Pre-sedation anethsthesia assessment.---- 8:38:13 Previous problem with sedation/anesthesia? No ? 8:38:14 Snore? Yes 8:38:15 Sleep apnea? Yes 8:38:16 Deviated septum? No 8:38:17 Opens mouth fully? Yes 8:38:18 Sticks out tongue? Yes 8:38:21 Airway obstruction? No ? 8:38:23 Dentures? No ? 8:38:29 Pre procedure: right dorsailis pedis pulse 2+ Normal; easily identifiable; not easily obliterated 8:38:31 Modified Denny's test Ulnar < 7 seconds 8:38:33 Patient pain scale 0/10 ?. 8:38:37 IV patent on arrival in left antecubital with 0.9% NaCl at [facility]. 8:38:43 Right Radial & Right Groin area was prepped with chlora-prep and draped in sterile fashion 8:40:53 Lab Result : BUN 15 mg/dl 8:40:53 Lab Result : Creatinine 1.1 mg/dl 8:40:53 Lab Result : eGFR NONAFRICAN 73.39595 ml/min 8:41:27 ACIST Syringe (48014) opened to sterile field. 8:41:27 Medline Cath Pack ([id number]) opened to sterile field. 8:41:28 Bag Decanter (2002) opened to sterile field. 8:41:29 ACIST Hand Control (16064) opened to sterile field. 8:41:29 ACIST Manifold (09797) opened to sterile field. 8:41:30 MBrace Wrist Support ([id number]) opened to sterile field. 8:41:31 NEEDLE Cook 21G 4cm Radial (G34433) opened to sterile field. 8:41:32 SHEATH 6FR RAIN (4025599) opened to sterile field. 8:41:33 EMERALD Guide Wire (301-795) opened to sterile field. 8:51:47 --------ALL STOP TIME OUT------ 8:51:49 Final Timeout: patient, procedure, and site verified with staff and physician. All members of the team are in agreement. 8:51:51 Right Radial & Right Groin site verified by team. 8:51:55 Fire Safety Assessment: A--An alcohol-based skin anteseptic being used preoperatively., C--Open oxygen or nitrous oxide is being used., D--An ESU, laser, or fiber-optic light is being used. 8:51:57 Physical assessment completed. ASA score P 2 - A patient with mild systemic disease as per Smith Coreas MD. 8:51:59 2) 60-89 Mildly reduced kidney function, and other findings (as for stage 1) point to kidney disease. 8:52:02 Maximum allowable contrast dose (3.7 X eGFR X 0.75)203 ml. 8:52:05 Sedation plan: IV Moderate Sedation Medication:Versed, Fentanyl 8:52:08 Versed 1 mg I.V. was administered by Malgorzata Goss RN; for sedation; Verbal order read back and verified. 8:52:11 Fentanyl 50 mcg was administered by Malgorzata Goss RN; for sedation; Verbal order read back and verified. 8:56:23 Versed 1 mg I.V. was administered by Malgorzata Goss RN; for sedation; Verbal order read back and verified. 8:56:36 Fentanyl 50 mcg I.V. was administered by Malgorzata Goss RN; for sedation; Verbal order read back and verified. 9:00:03 Fentanyl 50 mcg I.V. was administered by Malgorzata Goss RN; for sedation; Verbal order read back and verified. 9:00:49 Versed 1 mg I.V. was administered by Malgorzata Goss RN; for sedation; Verbal order read back and verified. 9:01:34 Procedure started. 9:02:21 Local anesthetic to right radial artery with Lidocaine 2% by Smith Coreas MD.INITIAL ACCESS ONLY 9:04:28 Versed 1 mg I.V. was administered by Malgorzata Goss RN; for sedation; Verbal order read back and verified. 9:04:35 Fentanyl 50 mcg I.V. was administered by Malgorzata Goss RN; for sedation; Verbal order read back and verified. 9:04:51 A 6 Fr Short sheath was inserted into the Right Radial artery 9:06:07 A DIAGNOSTIC [place] 110cm 5 Fr catheter ([id number]) was advanced over the wire and used for Procedure. 9:06:32 LV gram done using CARPENTER 9:07:13 LV hemodynamics recorded. 9:07:16 Injector settings: Ml/sec: 5, Volume: 15, 9:07:26 EF : 50 % 9:08:09 LCA angiography performed. 9:08:12 Injector settings: Ml/sec: 3, Volume: 6, 9:09:53 RCA angiography performed. 9:09:56 Injector settings: Ml/sec: 3, Volume: 6, 9:10:26 ACCDominant side:Left 9:11:46 Proceeding to intervention. 9:11:51 Use device set COREAS PCI 9:11:58 TUBING High Pressure Extension Tubing (Coreas) ([id number]) opened to sterile field. 9:12:00 INFLATOR Merit BasixCompak (AO9316) opened to sterile field. 9:12:07 [place] OmniWire (20431) opened to sterile field. 9:13:30 Heparin Bolus 5000 units I.V. was administered by Malgorzata Goss RN; for anticoagulation; verified with dr coreas Verbal order read back and verified. 9:14:08 Pressure wire advanced. 9:15:22 Wire advanced across lesion. 9:17:14 LAD lesion measured at .83 with IFR 9:22:02 Catheter exchanged over wire. 9:22:09 GUIDE 6FR XBLAD 3.5 catheter ([id number]) opened to sterile field. 9:22:40 Zero performed for pressure channel P1 9:24:38 Pressure wire advanced. 9:25:14 Versed 1 mg I.V. was administered by Malgorzata Goss RN; for sedation; Verbal order read back and verified. 9:29:32 Wire advanced across lesion. 9:30:02 Versed 1 mg I.V. was administered by Smith Coreas MD; for sedation; Verbal order read back and verified. 9:30:29 LAD lesion measured at .84 with IFR 9:32:32 Pre PCI Site: [place] LAD has 80% stenosis. 9:33:08 ACC Pre-intervention MARIA INES Flow is 3. 9:33:20 Heparin Bolus 5000 units I.V. was administered by Malgorzata Goss RN; for anticoagulation; verified with dr coreas Verbal order read back and verified. 9:34:34 Place stent Inflation Number: 1 A RONAK RX 3.0 x 18 stent ([id number]) was prepped and advanced across the Mid LAD 80. The stent was deployed at 14 RODRICK for 0:00 (min:sec) . 9:35:40 Stent catheter was removed intact over wire. 9:38:47 POST LAD MEASUREMENT .90. 9:41:50 Place stent Inflation Number: 2 A RONAK RX 2.75 x 12 stent ([id number]) was prepped and advanced across the Mid LAD . The stent was deployed at 14 RODRICK for 0:25 (min:sec) . 9:42:54 Stent catheter was removed intact over wire. 9:45:40 Nitroglycerin IC/IA 50 mcg I.A. was administered by Smith Coreas MD; for vasodilation; Verbal order read back and verified. 9:47:42 POST LAD MEASUREMENT .90. 9:49:29 Stent catheter was removed intact over wire. 9:49:30 Wire removed. 9:49:34 Guide catheter removed. 9:50:05 ZEPHYR LARGE TR BAND (807415) opened to sterile field. 9:50:30 Fluoroscopy time 11.30 minutes. 9:50:36 Fluoroscopy dose: 2084 mGy 9:50:36 Flurop Dose total: 2084 9:50:42 Dose Area Product 337773 mGy/cm. 9:50:49 Sheath removed intact; hemostasis achieved with Mechanical Compression to the Right Radial artery. 9:50:51 Procedure ended.(Physican Out) 9:51:52 Contrast amount:Isovue 370 165ml. 9:52:08 Maximum allowable dose exceeded? No. 9:52:09 Sharps counted by scrub and verified by R.N. 9:52:19 [place] band inflated with 10cc of air. 9:52:22 Post Procedure Pulses reassessed and unchanged 9:52:24 Post procedure: right dorsailis pedis pulse 2+ Normal; easily identifiable; not easily obliterated. 9:52:27 Post-procedure physical assessment completed. ASA score P 2 - A patient with mild systemic disease as per Smith Coreas MD. 9:52:30 Post procedure rhythm: unchanged. 9:52:32 Estimated blood loss: 10 ml 9:52:34 Post procedure instruction explained to patient.Patient verbalizes understanding. 9:52:34 Patient needs reinforcement of post procedure teaching. 9:52:55 Procedure type changed to Cath procedure, Diagnostic procedure, LHC, LHC w/Coronaries, FFR/IVUS, FFR Initial, Sedation Charges, Moderate Sedation 10-24 minutes, PCI procedure, Coronary Stent, Coronary Stent Initial, Hemochron ACT Test 9:53:25 Procedure and supply charges have been captured, reviewed, submitted and are correct. 9:53:32 Procedure Complication : No complications 9:53:37 [facility] Findings: MVD- PCI performed (see procedure note) 9:53:38 Operative report dictated upon procedure completion. 9:53:39 See physician's report for complete and final results. 9:53:43 Report given to Pre/Post Procedure Room. 9:53:46 Patient transfered to Pre/Post Procedure Room with Stretcher. 9:53:49 Procedure ended. 9:53:49 Full Disclosure recording stopped 9:54:00 ACC-PCI Only Patient was given prescriptions, or instructed by Smith Coreas MD to start/continue the following medications upon discharge: Plavix 9:54:01 End room use (Document Last) 9:55:06 End room use (Document Last) 9:56:22 ACT drawn and resulted at 343 seconds. (normal therapeutic range 180-240 seconds). 9:57:21 Vital chart was stopped Intervention Summary Intervention Notes Time ActionType Lesion and Equipment Used Action# Pressure Duration Attributes 9:34:34 Place stent Mid LAD RONAK RX 3.0 x 1 14 00:00 18 stent ([id number]) 9:41:50 Place stent Mid LAD RONAK RX 2.75 x 2 14 00:26 12 stent ([id number]) Device Usage Item Name Manufacture Quantity Catalog [facility] Part [facility] Lot# / Number Charge Number Stock Stock Serial# Code ACIST Syringe Acist 1 79899 902581 730445 278551 20 (11982) Medical Systems Inc Medline Cath Medline 1 [id number] 298306 23450 180078 5 Pack ([id number]) Bag Decanter Microtek 1 029830 48341 838847 5 () Medical Inc. ACIST Hand Acist 1 14166 770818 552047 490100 5 Control Medical (65222) Systems Inc ACIST Manifold Acist 1 65620 084753 624340 370000 5 (21939) Medical Systems Inc MBrace Wrist Advanced 1 140-0250-00 180158 01227 923139 5 Support Vascular ([id number]) Dynamics NEEDLE Cook [place] Medical 1 W74865 449105 513506 364181 5 21G 4cm Radial (F56473) SHEATH 6FR Cardinal 1 0707651 383901 6164708 649294 5 RAIN (4022149) Health EMERALD Guide Cardinal 1 502-455 120422 477651 268320 5 Wire (502-996) Health DIAGNOSTIC Terumo 1 40-1168 669115 700991 560101 5 [place] 110cm 5 Fr catheter (958283) TUBING High Merit 1 [id number] 838987 77402 840823 10 Pressure Medical Extension Tubing (Coreas) ([id number]) INFLATOR Merit Merit 1 LX6149 846920 233878 786972 15 BasixComFrienditePlus Medical (LN7155) [place] 1 [id number] 639289 74584 9947 5 OmniWire (86699) GUIDE 6FR Cardinal 1 [id number] 451983 727798 133782 10 XBLAD 3.5 Health catheter (56172944) RONAK RX 3.0 x Medtronic 1 [id number] 537753 5982932 941132 5 [id number] 18 stent ([id number]) RONAK RX 2.75 x Medtronic 1 [id number] 637190 6866944 883499 5 [id number] 12 stent ([id number]) ZEPHYR LARGE Cardinal 1 627484 483305 9749863 632479 5 [facility] KinDex [employer] (136810) Signature Audit [place] Stage Time Signature Unsigned Intra-Procedure 08/20/2020 Lauren Pena 9:54:44 AM RT(R) Intra-Procedure 08/20/2020 Malgorzata 9:55:06 AM Ana Paula RN Intra-Procedure 08/20/2020 Smith Coreas MD 9:57:18 AM Signatures Performing Physician : Signature : Smith Coreas MD Date : Time : Monitor : Lauren Pena Signature : RT Date : Time : Nurse : Malgorzata Signature : Ana Paula RN Date : Time : [address] [place] [address]
[~2020-08-20 07:01] MED LIST changes: +FUROSEMIDE40 MG PO; +ISOSORBIDE MONO30 M1 PO; +K-DUR20 MEQ PO; +PEPCID40 MG PO; +PROLASTIN C IV; +PROTONIX40 MG PO; +REPATHA SY140 MG/1 M SC; +[UNRECOGNIZED DRUG - OTHER] IV
[2020-08-20 08:07] VITALS: BP 135/73; Ht 185.4 cm; Wt 124.8 kg
[2020-08-20 08:13] LABS: BASOPHILS 0.4 % (0-2); EOSINOPHILS 10.4 % (0-7); HEMOGLOBIN 15.3 g/dL (13.5-17.5); LYMPHOCYTE ABS# 1.84 10x3/uL (1.32-3.57); LYMPHOCYTES 34.7 % (15-50); MCH 32.3 pg (26.0-34.0); MCV 95.1 fL (80.0-100.0); MEAN PLATELET VOLUME 10.4 fL (7.4-10.4); MONOCYTES 10.2 % (2-11); NEUTROPHIL ABS# 2.35 10x3/uL (1.78-5.38); NEUTROPHILS 44.3 % (40-80); PLATELET COUNT 206 10x3/uL (130-400); RBC 4.73 10x6/uL (4.20-6.10); RDW 12.8 % (11.5-14.5); WBC 5.3 10x3/uL (4.8-10.8)
[2020-08-20 08:22] LABS: ANION GAP 13.8 mmol/L (8-16); CARBON DIOXIDE 27.4 mmol/L (21.0-32.0); CHOL - HDL RATIO 1.6 ratio (2.3-4.9); CREATININE - SERUM 1.1 mg/dL (0.6-1.3); LDL-HDL RATIO 0.4 ratio (1.5-3.5); POTASSIUM - SERUM 4.2 mmol/L (3.5-5.1)
[2020-08-20] MEDS ORDERED: REVEFENACIN INH (08:32)
--- NOTE | 2020-08-20 10:00 | NUR ---
ARRIVES TO ROOM 10 VIA STRETCHER FROM NUCLEAR LICENSING ENGINEER S/P HEART CATH. SEE BENCH WORKER, PT PLACED ON MONITORS AND ALARMS ON. IV INFUSING PER ORDERS, CALL LIGHT WITH IN REACH , PT DENIES PAIN OR NEEDS
--- NOTE | 2020-08-20 10:10 | NUR ---
DR JAY AT BEDSIDE TO SPEAK WITH PT AND FAMILY MEMEMBER
--- NOTE | 2020-08-20 10:20 | NUR ---
PT GIVEN URINAL VOIDS 200CC CLEAR YELLOW URINE, PT AAOX3, VSS, SR, SATS 98% 2LNC, RIGHT WRIST WITH ZBAND IN PLACE PALPABLE RADIAL PULSE, CAP REFILL WNL, MOVES ALL DIGITS, NO OOZING OR BLEEDING NOTED, DENIES PAIN, IV INFUSING PER ORDERS, CALL LIGHT WITHIN REACH
--- NOTE | 2020-08-20 10:35 | NUR ---
PT SITTING UP IN BED VISITING WITH DTR, VSS, SR , SATS 94% 2LNC, RIGHT WRIST STABLE NO OOZING OR BLEEDING NOTED, RADIAL AND BRACHIAL PULSE PALPABLE CAP REFILL WNL, DENIES PAIN OR NEEDS, IV INFUSING PER ORDERS, CALL LIGHT WITHIN REACH
[2020-08-20] MEDS ORDERED: PLAVIX75 MG PO (10:39)
--- NOTE | 2020-08-20 10:45 | NUR ---
RIGHT WRIST STABLE WITH ZBAND IN PLACE RADIAL AND BRACHIAL PULSE PALPABLE NO PALPABLE HEMATOMA, CAP REFILL WNL, DENIES PAIN, NO OOZING OR BLEEDING NOTED. IV INFUSING PER ORDERS, BP 113/67 HR 66 SATS 96% ON 2LNC, CALL LIGHT WITHIN REACH
--- NOTE | 2020-08-20 11:00 | NUR ---
SANDWICH BOX AND COFFEE GIVEN
--- NOTE | 2020-08-20 11:30 | NUR ---
RIGHT WRIST STABLE NO OOZING OR BLEEDING NOTED, BRACHIAL AND RADIAL PULSE PALPABLE CAP REFILL WNL, DENIES PAIN OR NEEDS , IV INFUSING PER ORDERS , VSS , SR , SATS 93% 2LNC, DTR AT BEDSIDE , CALL LIGHT WITHIN REACH
--- NOTE | 2020-08-20 12:00 | NUR ---
RIGHT WRIST STABLE NO PALPABLE HEMATOMA, NO OOZING OR BLEEDING NOTED ZBAND IN PLACE WITH 10CC AIR, BRACHIAL AND RADIAL PULSE PALPABLE, CAP REFILL WNL, DENIES PAIN OR NEEDS, IV INFUSING PER ORDERS, CALL LIGHT WITHIN REACH
--- NOTE | 2020-08-20 12:30 | NUR ---
PT RESTING QUIETLY, VSS, ST , SATS 93% 2LNC, RIGHT WRIST WITH ZBAND IN PLACE NO OOZING OR BLEEDING BRACHIAL AND RADIAL PULSE PALPABLE, CAP REFILL WNL, IV INFUSING PER ORDERS, DENIES PAIN OR NEEDS , CALL LIGHT WITH IN REACH
--- NOTE | 2020-08-20 12:45 | NUR ---
VSS, SR, SATS 92% 2LNC, RIGHT WRIST WITH ZBAND INPLACE BRACHIAL AND RADIAL PULSE , NO PALPABLE HEMATOMA, CAP REFILL WNL, DENIES PAIN OR NEEDS, IV INFUSING PER ORDERS, CALL LIGHT WITHIN REACH
--- NOTE | 2020-08-20 13:00 | NUR ---
2CC AIR RELEASED FROM RIGHT ZBAND WITHOUT OOZING OR BLEEDING , RADIAL PULSE PALPABLE, CAP REFILL WNL
--- NOTE | 2020-08-20 13:15 | NUR ---
2CC AIR RELEASED FROM RIGHT ZBAND WITHOUT OOZING OR BLEEDING , NO PALPABLE HEMATOMA, CAP REFILL WNL, MOVES ALL DIGITS
--- NOTE | 2020-08-20 13:30 | NUR ---
4CC AIR REMOVED FROM RIGHT ZBAND WITHOUT OOZING OR BLEEDING NOTED, NO PALPABLE HEMATOMA, CAP REFILL WNL. DENIES PAIN MOVES ALL DIGITS.
--- NOTE | 2020-08-20 13:45 | NUR ---
REMAINING AIR REMOVED FROM RIGHT ZBAND WITH OUT BLEEDING OR OOZING , 2 X 2 WITH OPSITE APPLIED, NO PALPABLE HEMATOMA , RADIAL PULSE PALPABLE, CAP REFILL WNL, DENIES PAIN, 20G IV REMOVED FROM LEFT HAND 2 X 2 APPLIED WITH OPSITE. DISCHARGE TEACHING STARTED AND COMPLETED, PT AND DTR VERBALIZED UNDERSTANDING. QUESTIONS AND CONCERNS ADDRESSED. DENIES PAIN OR NEEDS
--- NOTE | 2020-08-20 13:55 | NUR ---
PT DRESSED AND AMBULATES TO BATHROOM VOIDS WITHOUT DIFFICULTY, RIGHT WRIST WITHOUT OOZING OR BLEEDING OR PALPABLE HEMATOMA , CAP REFILL WNL
--- NOTE | 2020-08-20 14:00 | NUR ---
PT DISCHARGED PER ORDERS, TAKEN TO CAR VIA WHEELCHAIR.
== END 2020-08-20 14:00 | disposition home or self-care (01) ==
LOC: D.CATH 07:01
PROVIDERS: ATTEND Internal Medicine Cardiovascular Disease
DX: I25.119 Atherosclerotic heart disease of native coronary artery with unspecified angina pectoris (principal); I10 Essential (primary) hypertension; J44.9 Chronic obstructive pulmonary disease, unspecified; K21.9 Gastro-esophageal reflux disease without esophagitis
CPT/HCPCS: 93458; 93571; C9600